=== PATIENT | female | born 1995 | race Hispanic/Latino ===

== ENCOUNTER 2023-12-05 10:43 | Emergency (ER) | payer SELFPAY ==
[~2023-12-05] VITALS: Ht 175.3 cm; Wt 88.0 kg
[~2023-12-05 10:43] MED LIST: HYDROCODON-ACE1 EA11 PO; METAXALONE800 MG PO
[2023-12-05 11:39] VITALS: PULSE 78; RESP 15; TEMP 97.8
[2023-12-05] MEDS ORDERED: AUGMENTIN 500-1 EACH PO (12:55)
[2023-12-05] MEDS: LIDOCAINE HCL 1% LOCAL INJ 20 ML VIAL INJ ONE (13:48)
[2023-12-05 14:39] VITALS: BP 120/78; PULSE 66; RESP 16; TEMP 98; O2SAT 100
== END 2023-12-05 14:00 | disposition home or self-care (01) ==
LOC: ER 12:06
DX: S60.512A Abrasion of left hand, initial encounter (principal); W54.0XXA Bitten by dog, initial encounter; Y92.89 Other specified places as the place of occurrence of the external cause; Z98.84 Bariatric surgery status
CPT/HCPCS: 99283; J2001